=== PATIENT | male | born 1990 | race African-American/Black ===

== ENCOUNTER 2024-12-15 | Emergency (ER) | payer OTHER ==
[2024-12-15] MEDS ORDERED: Ondansetron ODT 4 MG TAB ONE (00:31)
[2024-12-15] MEDS ORDERED: Acetaminophen 500 MG TAB ONE (00:31)
[2024-12-15] MEDS ORDERED: Lidocaine 1% (PF) 30 ML VIAL ONE (01:12)
[2024-12-15] MEDS ORDERED: Boostrix 0.5 ML (Tdap) VIAL (>/=7 yrs of age) ONE (02:33)
[2024-12-15] MEDS ORDERED: Doxycycline 100 MG CAP PO SCH (03:30)
== END 2024-12-15 03:28 ==
LOC: EEVIPCON → CSHERS
DX: S02.40FA Zygomatic fracture, left side, initial encounter for closed fracture (principal); S01.111A Laceration without foreign body of right eyelid and periocular area, initial encounter; I10 Essential (primary) hypertension; F17.200 Nicotine dependence, unspecified, uncomplicated; Y04.0XXA Assault by unarmed brawl or fight, initial encounter; Z23 Encounter for immunization
CPT/HCPCS: 12013; 70450; 71045; 72125; 90471; 90715; Q0162